=== PATIENT | male | born 1960 | race Caucasian/White ===

== ENCOUNTER → 2019-09-15 | Outpatient (CLI) | payer BC ==
--- NOTE | 2019-09-15 09:39 | KCIC ---
MRI Lumbar Spine without contrast History: Lumbar radiculopathy, low back pain, injury about 2 weeks ago, alternating leg pain Technique: Multiplanar, multi sequential noncontrast MR imaging was performed of the lumbar spine. Comparison: None Findings: Lumbar vertebral body stature and AP alignment are maintained. Conus terminates near L1-L2. There is mild disc desiccation L3-4 through L5-S1, intervertebral disc spaces relatively preserved. There is a small hemangioma of the L4 vertebral body. There is no significant suspicious marrow edema. There is very mild lumbar levoscoliosis. L1-L2: Neural foramina and spinal canal are adequate. L2-L3: Neural foramina and spinal canal are adequate. There is mild facet degenerative change. L3-L4: There is minimal buckling of the ligamentum flavum and facet degenerative change. Spinal canal and neural foramina are adequate. L4-L5: There is mild buckling of the ligamentum flavum and right greater than left facet degenerative change. There is minimal disc osteophyte complex and superimposed shallow protrusion in the far left lateral recess and inferior left neural foramen. There is mild narrowing of the left neural foramen, disc osteophyte complex near the undersurface exiting left L4 nerve root without significant impingement. Right neural foramen is adequate. There is very mild narrowing of the far left lateral recess. L5-S1: Spinal canal is adequate. There is minimal facet degenerative change. Neural foramina are adequate. Impression: 1. There is no significant lumbar spinal stenosis, very mild narrowing of the far left lateral recess at L4-5 by shallow protrusion. 2. There is mild narrowing of the inferior left L4-5 neural foramen. Electronically signed by: Royal Badillo MD (09/15/2019 9:36 AM) [place] [id number]
--- NOTE | 2019-09-15 10:19 | KCIC ---
Clinical indications: Screening for metal within the orbits prior to an MRI study. 3 view study of the orbits was performed. Findings: No metallic foreign body is seen within either orbit. The maxillary and ethmoid and frontal sinuses are clear. The orbital floors appear symmetric and are intact. Impression: No metallic foreign body is identified within either orbit. Electronically signed by: Seth Hammer MD (09/15/2019 10:16 AM) [id number]
== END | disposition home or self-care (01) ==
LOC: KCIC MRI 08:02
PROVIDERS: ATTEND Family Medicine
DX: M25.78 Osteophyte, vertebrae (principal); M47.26 Other spondylosis with radiculopathy, lumbar region
CPT/HCPCS: 70030; 72148

== ENCOUNTER → 2021-03-01 | Outpatient (CLI) | payer BC ==
--- NOTE | 2021-03-01 13:01 | KCIC ---
Study: XR SHOULDER_LEFT 2+ VIEWS Indication: Left shoulder pain. Limited range of motion. No reported injury. Comparison: None. Findings: Alignment is anatomic. Normal acromiohumeral interval. Mild arthrosis at the acromioclavicular joint with small subarticular cyst formation and a millimetric chronic focus of ossification at the upper m argin of the joint space. No significant arthrosis at the glenohumeral joint. No fracture. The partia lly assessed left ribs are grossly intact. Impression: No acute fracture or malalignment. Mild AC joint arthrosis. Electronically signed by: RAFFAELE ANAND MD (03/01/2021 12:58 PM) [facility] [id number]
== END ==
LOC: KCIC 10:40
PROVIDERS: ATTEND Nurse Practitioner Family
DX: M19.012 Primary osteoarthritis, left shoulder (principal); M25.512 Pain in left shoulder
CPT/HCPCS: 73030